=== PATIENT | female | born 1990 | race Caucasian/White ===

== ENCOUNTER → 2017-03-31 | Day surgery (SDC) | payer OTHER, BC ==
[~2017-03-31] MED LIST: NO MEDICATIONS
--- NOTE | ~2017-03-31 | OR ---
Unit #: [id number] #: [id number] Patient: JOMAR DE LA GARZA [id number] [address] [address] [id number] O MR#: [id number] NAME: JOMAR DE LA GARZA ROOM: Date of Procedure: 03/31/2017 Admission Date: 03/31/2017 Surgeon: Aftab Medina M.D. : 1990 Attending Physician: Aftab Medina M.D. Primary Care Physician: Primary Care Physician No OPERATIVE REPORT PREOPERATIVE DIAGNOSES 1. Adenotonsillar hypertrophy. 2. Recurrent tonsillitis. POSTOPERATIVE DIAGNOSES 1. Adenotonsillar hypertrophy. 2. Recurrent tonsillitis. PROCEDURE PERFORMED Adenotonsillectomy. ANESTHESIA General endotracheal anesthesia. COMPLICATIONS None. FINDINGS Included adenotonsillar hypertrophy. INDICATIONS FOR PROCEDURE This is a 26-year-old female, who has had a history of chronic and recurrent tonsillitis, presents today for adenotonsillectomy. DESCRIPTION OF PROCEDURE The patient was placed supine on the operative table. Anesthesia achieved by general endotracheal anesthesia. The patient was prepped and draped for adenotonsillectomy. A mouth gag was inserted and retracted. The palate was palpated. There was no submucous cleft noted. Tonsils were dissected in an extracapsular fashion first on the right and then on the left with Bovie cautery. A catheter was placed through the nose into the oropharynx to elevate the soft palate and then adenoids were 1 to 2+ hypertrophied. These were taken down with suction Bovie cautery. All bleeders were cauterized with suction Bovie cautery. All apparatus was removed. The patient was awakened and transferred to Recovery in stable condition. Dictated by... Olya Borrero/edita Unit #: [id number] #: [id number] Patient: JOMAR DE LA GARZA TD: 03/31/2017 14:59 JOB #: [id number] OPERATIVE REPORT Page 1 of 1 X Aftab Medina MD PROCEDURE OPERATIVE NOTE
== END | disposition home or self-care (01) ==
LOC: CSUR 05:44
DX: J35.01 Chronic tonsillitis (principal); J03.91 Acute recurrent tonsillitis, unspecified; Z88.0 Allergy status to penicillin; Z88.1 Allergy status to other antibiotic agents; Z91.040 Latex allergy status
CPT/HCPCS: 84703; 88304; J0131; J1100; J1170; J2250; J2405; J2710; J3010